=== PATIENT | female | born 1985 | race Caucasian/White ===

== ENCOUNTER → 2016-05-30 | Outpatient (CLI) | payer BC ==
[~2016-05-30] MED LIST: LRT5 PO
[2016-05-30 16:23] LABS: THYROID STIMULATING HORMONE 0.22 uIu/ml (0.300-4.500)
== END | disposition home or self-care (01) ==
LOC: C.LAB1850 14:53
PROVIDERS: ATTEND Internal Medicine Endocrinology, Diabetes & Metabolism
DX: E55.9 Vitamin D deficiency, unspecified (principal)

== ENCOUNTER → 2016-10-13 | Outpatient (CLI) | payer BC ==
[2016-10-13 17:10] LABS: THYROID STIMULATING HORMONE 4.48 uIu/ml (0.300-4.500)
== END | disposition home or self-care (01) ==
LOC: C.LAB1850 15:15
PROVIDERS: ATTEND Physician Assistant
DX: E03.9 Hypothyroidism, unspecified (principal)

== ENCOUNTER → 2017-07-24 | Outpatient (CLI) | payer BC | END | disposition home or self-care (01) | LOC: C.PAPS 15:24 | PROVIDERS: ATTEND Obstetrics & Gynecology | DX: O99.281 Endocrine, nutritional and metabolic diseases complicating pregnancy, first trimester (principal) ==

== ENCOUNTER → 2017-07-24 | Outpatient (CLI) | payer BC ==
[2017-07-24 11:16] LABS: BASO % 0.2 %; BASO ABS # 0.02 K/uL (0-0.2); EOS % 0.9 %; EOS ABS # 0.09 K/uL (0-0.5); HEMATOCRIT 41.9 % (37-47); HEMOGLOBIN 14.3 g/dL (12.0-16.0); IG# 0.03 K/uL (0.00-0.02); LYMPH % 20.1 %; LYMPH ABS # 2.12 K/uL (1.2-3.4); MEAN CORPUSCULAR HGB CONC 34.1 g/dl (32-36); MEAN PLATELET VOLUME 10.8 fL (7.4-10.4); MONO % 4.6 %; MONO ABS # 0.48 K/uL (0.11-0.59); NEUT % 73.9 %; NEUT ABS # 7.79 K/uL (1.4-6.5); PLATELET COUNT 248 K/uL (130-400); RED CELL DISTRIBUTION WIDTH CV 13.6 % (11.5-14.5); WHITE BLOOD COUNT 10.53 K/uL (4.8-10.8)
== END | disposition home or self-care (01) ==
LOC: C.LAB1850 09:58
PROVIDERS: ATTEND Obstetrics & Gynecology
DX: O99.281 Endocrine, nutritional and metabolic diseases complicating pregnancy, first trimester (principal); E03.9 Hypothyroidism, unspecified

== ENCOUNTER → 2017-12-06 | Outpatient (CLI) | payer BC, OTHER | END | disposition home or self-care (01) | LOC: C.LAB1850 10:32 | PROVIDERS: ATTEND Internal Medicine | DX: E03.8 Other specified hypothyroidism (principal); E06.3 Autoimmune thyroiditis ==

== ENCOUNTER → 2017-12-19 | Outpatient (CLI) | payer OTHER ==
[2017-12-19 12:14] LABS: HEMATOCRIT 38.2 % (37-47); HEMOGLOBIN 12.8 g/dL (12.0-16.0)
== END | disposition home or self-care (01) ==
LOC: C.LAB1850 09:29
PROVIDERS: ATTEND Obstetrics & Gynecology
DX: Z34.03 Encounter for supervision of normal first pregnancy, third trimester (principal); Z3A.00 Weeks of gestation of pregnancy not specified

== ENCOUNTER → 2017-12-27 | Outpatient (CLI) | payer OTHER | END | disposition home or self-care (01) | LOC: C.LAB1850 07:17 | PROVIDERS: ATTEND Obstetrics & Gynecology | DX: O28.1 Abnormal biochemical finding on antenatal screening of mother (principal) ==

== ENCOUNTER 2021-01-25 07:30 | Inpatient (IN) ==
[2021-01-25] MEDS ORDERED: OXYTOCIN 30 UNITS/500 ML BAG IV PRN ×3 (08:14→18:12)
[2021-01-25 08:59] LABS: Hematocrit (blood only) 38.8 % (37-47); Hemoglobin 12.8 g/dL (12.0-16.0); Mean Corpuscular Hemoglobin 28.3 pg (25-34); Mean Corpuscular Volume 85.8 fL (80-100); Platelet Count 238 K/uL (130-400); RDW Standard Deviation 40.5 fL (36.4-46.3); Red Blood Count 4.52 M/uL (4.2-5.4); White Blood Count 14.39 K/uL (4.8-10.8)
[2021-01-25] MEDS: LACTATED RINGER'S 1,000 ML IV PRN ×2 (09:41→13:06)
--- NOTE | 2021-01-25 10:29 | History & Physical Report ---
Date of Service January 25, 2021 Assessment & Plan (1) Encounter for supervision of normal in multigravida, antepartum: Plan: IUP at 40 1/7 weeks for post term induction cervix favorable so will start pitocin augmentation epidural when requested anticipate vaginal Admission and Anticipated Discharge Date Admission Date: January 25, 2021 History of Present Illness Primary Care Provider: Edie Rinaldi MD Patient is a 35 yo white female EDC 01/24/21 who presents for IOL because of post term . was complicated by GDM diet controlled and hypothyroidism. GBS negative. Allergies Allergy/AdvReac Type Severity Reaction Status Date / Time No Known Drug Allergies Allergy Verified 01/24/21 14:06 Home Medications Medication Instructions Recorded Confirmed Type prenat.vits,hari,kre-vywt-ljyct 1 tab PO DAILY 09/12/19 01/24/21 History Euthyrox 137 mcg tablet 137 mcg PO DAILY #1 tab NS 07/26/20 01/24/21 Rx (levothyroxine) ondansetron HCl 4 mg tablet 4 mg PO Q6H PRN #20 tab 10/18/20 01/24/21 Rx (Zofran) acetone (urine) test (Ketone Urine #50 ea 11/19/20 01/24/21 Rx Test) blood sugar diagnostic (OneTouch #150 ea 11/19/20 01/24/21 Rx Verio test strips) blood-glucose meter (OneTouch #1 ea 11/19/20 01/24/21 Rx Verio Flex meter) lancets 33 gauge (OneTouch Delica #150 ea 11/19/20 01/24/21 Rx Plus Lancet) Patient History Medical History (Updated 11/16/20 @ 14:51 by Yelena Young) Dyschromia History of chicken pox Lymphadenopathy, anterior cervical Missed Shingles Surgical History Hx of tonsillectomy S/P wisdom tooth extraction Family History Grandmother Breast cancer Aunt Breast cancer Mother Depression Grandfather Myocardial infarction Father Hypercholesteremia Denies family history of Ovarian cancer Prostate cancer Colorectal cancer Social History (Updated 06/10/20 @ 10:12 by Yelena Young) Smoking Status: Never smoker Hx Alcohol Use: No Hx Substance Use: No Preferred Language: Spanish Communication Ability: Effective Director Of Extension Work Required: No Beliefs That Will Affect Care: None marital status: marital status details: Nahun Bhakta (34) [phone] Current Living Situation: Spouse and Family Current Living Situation Comment: and daughter current occupational status: employed current occupation: [employer] rep Feels Safe at Home: Yes Safety Concerns: Feels Safe At This Time Assistive Devices: None Review of Systems All systems reviewed & are unremarkable except as noted in HPI & below Physical Exam Constitutional: WD/WN, vitals as above Respiratory: normal respiratory effort, lungs clear to auscultation Cardiovascular: RRR, no murmur, no edema Psychiatric: A+Ox3, euthymic affect Genitourinary: OB Exam Abdomen: + vertex, + estimated weight (7-8 pounds) and + irregular contractions Manual OB Exam: + cervical dilation 4 cm, + cervical effacement 80% and + station high OB Exam Monitor Tracing: + external FHT monitor used, + external uterine monitor used, + category I and + normal FHT variability Results & Data ([facility] [place]) Vital Signs (Past 12 Hours) Vital Signs Temp Pulse Resp BP 01/25/21 09:44 75 115/68 01/25/21 07:45 98.6 F 20 Code Status & VTE Plan VTE Prophylaxis Plan VTE Prophylaxis will be ordered: Yes Coding Level of Care Code None Diagnoses Encounter for supervision of normal in multigravida, antepartum Z34.80
[2021-01-25] MEDS ORDERED: ePHEDrine sulfate 50 MG/ML AMP ONE (12:38)
[2021-01-25] MEDS ORDERED: SODIUM CHLORIDE 0.9% INJ 10 ML VIAL ONE (12:38)
[2021-01-25] MEDS ORDERED: fentaNYL citrate 100 MCG/2 ML VIAL ONE (12:38)
[2021-01-25] MEDS ORDERED: BUPIVACAINE 0.25% 30 ML VIAL ONE (12:38)
[2021-01-25] MEDS ORDERED: fentaNYL 2MCG/ML ROPIVACAINE 1.25MG/ML 100 ML BAG EPI ONE (12:39)
--- NOTE | 2021-01-25 13:07 | Anesthesiology Consultation ---
Date of Service January 25, 2021 Assessment & Plan (1) Encounter for pre-operative examination: Chart Review Chart Review: Acceptable Risk for Surgery and Patient NOT seen in Pre Admission Testing Consults Requested none ASA ASA2 Proposed Anesthesia Anesthesia Type: Labor Epidural Risk / Benefits Reviewed With: PT / POA / Parent / Guardian, Accepts Plan and Informed Consent Obtained History Height/Weight Height: 5 ft 3 in Weight: 99.79 kg Allergies Allergy/AdvReac Type Severity Reaction Status Date / Time No Known Drug Allergies Allergy Verified 01/24/21 14:06 Medications Home Medications Medication Instructions Recorded Confirmed Last Taken prenat.vits,hari,suk-ienu-nqrwd 1 tab PO DAILY 09/12/19 01/24/21 Unknown Euthyrox 137 mcg tablet 137 mcg PO DAILY #1 tab NS 07/26/20 01/24/21 Unknown (levothyroxine) ondansetron HCl 4 mg tablet 4 mg PO Q6H PRN #20 tab 10/18/20 01/24/21 Unknown (Zofran) acetone (urine) test (Ketone Urine #50 ea 11/19/20 01/24/21 Unknown Test) blood sugar diagnostic (OneTouch #150 ea 11/19/20 01/24/21 Unknown Verio test strips) blood-glucose meter (OneTouch #1 ea 11/19/20 01/24/21 Unknown Verio Flex meter) lancets 33 gauge (OneTouch Delica #150 ea 11/19/20 01/24/21 Unknown Plus Lancet) Active Medications Generic Name Dose Route Start Last Admin Trade Name Freq PRN Reason Stop Dose Admin Oxytocin 30 units in 500 mls @ 7 mls/hr 01/25/21 08:14 01/25/21 11:45 Pitocin IV 01/27/21 08:13 0.42 units/hr .Q24H PRN 7 mls/hr Labor Induction/Augmentation Titration Protocol 0.42 UNITS/HR Lactated Ringer's 1,000 mls @ 125 mls/hr 01/25/21 08:14 01/25/21 13:11 Lr IV 01/27/21 08:13 125 mls/hr .Q8H PRN Infusion L&D Protocol Protocol NPO Date Last Intake of Fluids: 01/25/21 Time Last Intake of Fluids: 13:04 Date Last Intake of Solids: 01/25/21 Time Last Intake of Solids: 07:00 Past Medical History Medical History Dyschromia History of chicken pox Lymphadenopathy, anterior cervical Missed Shingles Exercise / Class Metabolic Activity II 4-5 Yardwork/Stairs/Walk up hill Past Family History Family History Grandmother Breast cancer Aunt Breast cancer Mother Depression Grandfather Myocardial infarction Father Hypercholesteremia Denies family history of Ovarian cancer Prostate cancer Colorectal cancer Past Surgical History Surgical History Hx of tonsillectomy S/P wisdom tooth extraction Past Anesthesia History No Hx of Anesthesia Complications History of PONV No Hx of PONV Social History Smoking Status: Never smoker Hx Alcohol Use: No Hx Substance Use: No Review of Systems Negative for chest pain or shortness of breath. Patient denies history of abnormal bleeding or bleeding disorder. Patient denies active use of anticoagulants other than low dose aspirin. Patient denies numbness, tingling or weakness in lower extremities. Physical Exam Vital Signs Last Vital Signs Temp 37.0 C 01/25/21 07:45 Pulse 76 01/25/21 12:55 Resp 20 01/25/21 07:45 BP 124/78 01/25/21 12:55 Constitutional not obese (gravid ) ENMT Mouth: no TMJ abnormality and oral opening not small Thyromental Distance: > or= 3.5 Finger Breadths Mallampati Class: II Neck normal visual inspection; neck extension not limited Respiratory normal respiratory effort Cardiovascular Rate/Rhythm: regular rate and regular rhythm Neurologic moves all extremities Psychiatric Orientation: alert and oriented x 3 Testing Laboratory Results 01/25/21 08:34
[2021-01-25] MEDS ORDERED: NALOXONE HCL 1 MG in SODIUM CHLORIDE 0.9% 1000ML 1,000 ML IV PRN (13:55)
[2021-01-25] MEDS ORDERED: diphenhydrAMINE 50 MG/ML VIAL IV PRN (13:55)
[2021-01-25] MEDS ORDERED: NALOXONE HCL 0.4 MG/1 ML VIAL/CARP IV PRN (13:55)
[2021-01-25] MEDS ORDERED: NALBUPHINE HCL INJ 10 MG/ML AMP IV PRN (13:55)
[2021-01-25] MEDS ORDERED: ONDANSETRON INJ 2 MG/ML 2 ML VIAL IV PRN (13:55)
[2021-01-25] MEDS ORDERED: ePHEDrine sulfate 50 MG/ML AMP IV PRN (13:55)
[2021-01-25] MEDS ORDERED: fentaNYL 2MCG/ML ROPIVACAINE 1.25MG/ML 100 ML BAG EPI PRN (13:55)
[2021-01-25] MEDS ORDERED: oxyCODONE/ACETAMINOPHEN 5mg/325mg TAB PO PRN (18:12)
[2021-01-25] MEDS ORDERED: SUPERCREAM 0.870% 15 GM JAR EXT PRN (18:12)
[2021-01-25] MEDS ORDERED: HYDROCORTISONE ACETATE 25 MG SUPP PR PRN (18:12)
[2021-01-25] MEDS ORDERED: BENZOCAINE 20% AER SPR 82.5 GM CAN EXT PRN (18:12)
[2021-01-25] MEDS ORDERED: ACETAMINOPHEN 325 MG TAB PO PRN (18:12)
[2021-01-25] MEDS ORDERED: bisacodyL 10 MG SUPP PR PRN (18:12)
[2021-01-25] MEDS ORDERED: DIPHTHERIA/TETANUS/PERTUSSIS 0.5 ML SYR/VIAL IM ONE (18:12)
--- NOTE | 2021-01-25 18:22 | Anesthesia Procedure Note ---
Date of Service January 25, 2021 Anesthesia Post Epidural Note Vital Signs Vital Signs: Temp Pulse Resp BP Pulse Ox 36.9 C 93 H 20 122/79 90 01/25/21 17:00 01/25/21 18:15 01/25/21 17:20 01/25/21 18:15 01/25/21 17:28 Notes Mental Status: alert / awake / arousable and participated in evaluation Nausea / Vomiting: adequately controlled Pain: adequately controlled Airway Patency, RR, SpO2: stable & adequate BP & HR: stable & adequate Hydration State: stable & adequate Neuraxial Anesthesia: was administered and sensory block is resolving Anesthetic Complications: no major complications apparent and Pt Satisfied with anesthetic care Epidural: Removed without complications and With tip intact Notes: Epidural site clean, dry and intact. No signs of edema, erythema or bruising at insertion site. Pt instructed to request anesthesia if she has residual lower extremity numbness or if she develops lower extremity pain or weakness, back pain or headache.
[2021-01-25] MEDS: DOCUSATE SODIUM 100 MG CAP PO SCH (20:31)
[2021-01-25] MEDS: IBUPROFEN 600 MG TAB PO PRN (20:31)
--- NOTE | 2021-01-25 23:09 | Delivery Summary ---
Vaginal Delivery Summary Date of Service January 25, 2021 Vaginal Delivery Summary and 1st Degree LAC Patient is a 35-year-old 4 para 1-0-2-1 white female who presented for induction of labor for postterm . Pitocin augmentation was begun and she received effective epidural analgesia when requested. Membranes were ruptured for clear fluid and she progressed to full dilation at which point she felt the urge to push. She pushed through 2 contractions for delivery of the vertex over intact perineum. The rest of the delivered easily and was placed on the mother's abdomen for further attention and drying. The was vigorous and moving all 4 limbs. After 1 minute the cord was clamped and cut. After cord blood was obtained the placenta was expressed intact with a three- vessel cord. A first-degree left labial laceration and first-degree perineal laceration were repaired with 3-0 chromic in the usual fashion. Estimated blood loss was 200 cc. bleeding was controlled with dilute Pitocin and fundal massage. Mother and were doing well after delivery. [facility] [place] Vaginal Delivery Charge Delivery Type Details: and 1st Degree LAC
[2021-01-26] MEDS: IBUPROFEN 600 MG TAB PO PRN ×4 (06:05→20:44)
[2021-01-26 06:40] LABS: Hematocrit (blood only) 35.5 % (37-47); Hemoglobin 11.8 g/dL (12.0-16.0); Mean Corpuscular Hemoglobin 28.6 pg (25-34); Mean Corpuscular Hgb Conc 33.2 g/dL (32-36); Mean Corpuscular Volume 86.2 fL (80-100); Mean Platelet Volume 10.9 fL (7.4-10.4); Platelet Count 217 K/uL (130-400); RDW Standard Deviation 41.1 fL (36.4-46.3); Red Blood Count 4.12 M/uL (4.2-5.4); White Blood Count 15.46 K/uL (4.8-10.8)
--- NOTE | 2021-01-26 07:14 | Obstetrical Progress Note ---
Date of Service January 26, 2021 Assessment & Plan (1) Encounter for care and examination after delivery: Plan: 35yo PPD 1 from at 40 weeks -Continue routine care -Vitals reviewed- HDS, afebrile -Encourage ambulation, regular diet -Pain control with ibuprofen, acetaminophen PRN -Encourage -Hgb 12.8 -O2 Sat 90 on room air, monitor -WBC 15.4 this morning, monitor Admission and Anticipated Discharge Date Admission Date: January 25, 2021 Supervising Physician Co-Signing Physician Notes Resident Physician Supervision Note: I interviewed and examined the patient. Discussed with and agree with findings and plan as documented in the note. Any exceptions or clarifications are listed here: [None] Documented By: Flaquita Collazo MD, FACOG Subjective PPD 1 s/p . Patient seen and examined at bedside. Reports no acute overnight events. Ambulating and voiding. Has not yet passed gas or stool. Regular diet w/o N/V. Breast Feeding. Pain /10, mainly breast tenderness. Review of Systems Review of Systems: Denies fevers/chills. Denies dyspnea, cough. Denies chest pain. Denies dysuria. Denies headache. Denies back pain. Physical Exam Physical Exam: General: Alert, oriented, no acute distress Cardiac: Regular rate and rhythm, normal S1, S2. No murmurs appreciated. Respiratory: Clear to auscultation b/l with good air flow entry, symmetric chest rise and fall. No wheezes or crackles. No increased work of breathing or accessory muscle use Abdomen: Soft, nontender, nondistended. Fundus firm and palpable at umbilicus. No guarding or rebound. Skin: No rashes or lesions Extremities: Warm, dry, well-perfused with capillary refill <2s b/l. No lower extremity edema, erythema or swelling. Negative Ernie's sign b/l. Results & Data ([facility]) Vital Signs (Past 12 Hours) Vital Signs Temp Pulse Pulse Resp BP BP 01/26/21 03:00 36.6 C 76 18 131/81 01/25/21 23:58 36.4 C L 88 18 132/82 01/25/21 20:15 36.9 C 84 18 126/72 01/25/21 20:00 85 18 130/80 01/25/21 19:44 80 144/76 H 01/25/21 19:30 36.7 C 80 18 144/76 H 01/25/21 19:15 94 H 139/69 01/25/21 19:00 100 H 20 122/59 L 01/25/21 18:45 20 01/25/21 18:44 90 133/66 Resident Activity Tracking Resident Involvement: Resident Care Provided Care Provided: Adult [facility] Medicine
[2021-01-26] MEDS: PRENATAL VITAMIN 1 TAB PO SCH (08:14)
[2021-01-26] MEDS: DOCUSATE SODIUM 100 MG CAP PO SCH ×2 (08:14→20:44)
[2021-01-26] MEDS: LEVOTHYROXINE SODIUM 137 MCG TABLET PO SCH (08:14)
[2021-01-26] MEDS ORDERED: bisacodyL 5 MG TABEC PO SCH (20:00)
[2021-01-27] MEDS: IBUPROFEN 600 MG TAB PO PRN ×2 (03:18→09:19)
[2021-01-27 06:44] LABS: Hematocrit (blood only) 35.4 % (37-47); Hemoglobin 11.6 g/dL (12.0-16.0)
[2021-01-27] MEDS: LEVOTHYROXINE SODIUM 137 MCG TABLET PO SCH (07:29)
--- NOTE | 2021-01-27 07:40 | Obstetrical Progress Note ---
Date of Service January 27, 2021 Assessment & Plan (1) Encounter for care and examination after delivery: Plan: 35yo PPD 2 from at 40 weeks -Continue routine care -Vitals reviewed- HDS, afebrile -Encourage ambulation, regular diet -Pain control with ibuprofen, acetaminophen PRN -Encourage -Hgb 11.6 -Discharge this morning Admission and Anticipated Discharge Date Admission Date: January 25, 2021 Supervising Physician Co-Signing Physician Notes Resident Physician Supervision Note: I was present with Dr. Rahman during the history and exam. I discussed the case with the resident and agree with the findings and plan as documented in the note. Any exceptions or clarifications are listed here: PPD#2 doing well, no concerns. Reviewed DC instructions, followup in office 6w. Documented By: Latoya Mohan, Subjective PPD 2 s/p . Patient seen and examined at bedside. Reports no acute overnight events. Ambulating and voiding. Has passed gas but not stool. Regular diet w/o N/V. Breast Feeding. Minimal breast tenderness, improved from yesterday. Review of Systems Review of Systems: Denies fevers/chills. Denies dyspnea, cough. Denies chest pain. Denies dysuria. Denies headache. Denies back pain. Physical Exam Physical Exam: General: Alert, oriented, no acute distress Cardiac: Regular rate and rhythm, normal S1, S2. No murmurs appreciated. Respiratory: Clear to auscultation b/l with good air flow entry, symmetric chest rise and fall. No wheezes or crackles. No increased work of breathing or accessory muscle use Abdomen: Soft, nontender, nondistended. Fundus firm and palpable 1cm below umbilicus. No guarding or rebound. Skin: No rashes or lesions Extremities: Warm, dry, well-perfused with capillary refill <2s b/l. No lower extremity edema, erythema or swelling. Negative Ernie's sign b/l. Results & Data ([facility]) Vital Signs (Past 12 Hours) Vital Signs Temp Pulse Resp BP Pulse Ox 01/26/21 23:10 36.7 C 64 16 131/88 98 01/26/21 20:40 36.6 C 80 16 129/84 98 Resident Activity Tracking Resident Involvement: Resident Care Provided Care Provided: OB Delivery
[2021-01-27] MEDS: PRENATAL VITAMIN 1 TAB PO SCH (09:19)
[2021-01-27] MEDS: DOCUSATE SODIUM 100 MG CAP PO SCH (09:19)
== END 2021-01-27 11:25 | disposition home or self-care (01) | DRG 807 ==
LOC: 4S1 07:30 → 4S2 20:32

== ENCOUNTER 2023-03-01 16:03 | Inpatient (IN) ==
[2023-03-01] MEDS ORDERED: LABETALOL HCL IV 5 MG/ML 20ML IV STA (16:28)
--- NOTE | 2023-03-01 17:10 | Emergency Department Note ---
Impression & Plan Pre-eclampsia ED Provider Note NAME: RAFA PRADHAN AGE: 37 SEX: F : 1985 ARRIVES VIA: Walk-In INFORMANT: Patient, ED PROVIDER(S): Johanna Adair MD CHIEF COMPLAINT: Preeclampsia HPI: This is a 37-year-old female presenting for hypertension/preeclampsia. Patient states that she gave to twins about 8 days ago. She had preeclampsia at the hospital where she delivered and was kept for observation. Her blood pressure goals are below 160s/110s. This afternoon she has noticed blood pressure in the 170s associate with headache. She said the headache feels like a slight pressure sensation bandlike. She has grogginess but otherwise no other symptoms. She has had daily headaches since being discharged giving . She thinks it was due to her epidural as it took multiple tries to get it. she states the headache has been worse with position. At this time her blood pressure is 150 systolic. She has had no vision changes, nausea, vomiting, focal neurologic weakness, numbness, paresthesias or seizures at home. She does take labetalol at home. ROS: See above HPI for pertinent positives & negatives. A total of 10 systems reviewed and were otherwise negative. PAST MEDICAL HISTORY: See Below PAST SURGICAL HISTORY: See Below FAMILY HISTORY: See Below SOCIAL HISTORY: See Below HOME MEDICATIONS: See Below ALLERGIES: See Below VITALS: See Below PHYSICAL EXAMINATION: General: resting comfortably in no acute distress Head: Normocephalic and atraumatic Eyes: Normal inspection, extraocular muscles intact, no conjunctival pallor Ear, nose, throat: Normal external exam Neck: Normal range of motion Respiratory: Patient is in no respiratory distress, lungs clear to auscultation bilaterally Cardiovascular: RRR without murmur appreciated GI: soft, nontender, no guarding or rebound Extremities: pulses intact with good cap refills, no LE pitting edema or calf tenderness Neuro: The patient awake and alert, appropriately conversive, no focal deficits, cranial nerves II through XII grossly intact Skin: Warm, dry, and intact MEDICAL DECISION MAKING: This is a 37-year-old female presenting for preeclampsia. Patient is 8 days . Diagnosed with preeclampsia At outside hospital, currently. 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 She was given IV labetalol 10 mg with improving her blood pressure into the 140s systolic. She had a headache without other neurologic symptoms, she has had persistent daily headaches even without high blood pressures at home. Patient blood pressure check does continue be elevated 160/102. Discussed with LINO Wall for next steps. She recommends magnesium loading and admission. She will come down to the ER for discussion for admission with patient Patient agreeable to admission at this time Triage Nursing notes reviewed. Prior medical records reviewed Vital Signs: reviewed and remarkable for hypertension Differential diagnosis: Preeclampsia ER treatment provided: See below Diagnostics interpreted by me: ECG: None Cardiac Monitoring: An order was placed for continuous cardiac monitoring. The monitor shows a rate of 70 with sinus rhythm. Laboratory studies: As stated above and show below. Consultation(s): LINO Wall Past Med/Surg History Medical History Dyschromia History of chicken pox Lymphadenopathy, anterior cervical Missed Shingles Surgical History Hx of tonsillectomy S/P wisdom tooth extraction Family History Grandmother Breast cancer Aunt Breast cancer Mother Depression Grandfather Myocardial infarction Father Hypercholesteremia Denies family history of Ovarian cancer Prostate cancer Colorectal cancer Social History Smoking Status: Never smoker Do You Dip or Chew Tobacco: No; Hx Alcohol Use: No Hx Substance Use: No Preferred Language: Russian Communication Ability: Effective Soldering Machine Tender Required: No Beliefs That Will Affect Care: None marital status: marital status details: Nahun Pradhan (34) [phone] Current Living Situation: Spouse and Family Current Living Situation Comment: , son and daughter, no pets current occupational status: employed current occupation: [employer] Feels Safe at Home: Yes Assistive Devices: None Allergies Allergies Allergy/AdvReac Type Severity Reaction Status Date / Time No Known Drug Allergies Allergy Verified 08/31/22 09:39 Home Meds Home Medications Medication Instructions Recorded Confirmed prenat.vits,hari,zyh-urxr-qdhwv 1 tab PO DAILY 09/12/19 08/31/22 Previous Rx's Medication Instructions Recorded ondansetron HCl 4 mg tablet 4 mg PO TID PRN nausea and 08/14/22 vomiting 5 days #30 tabs acetone (urine) test (Ketone Urine #50 ea 08/28/22 Test strips) blood sugar diagnostic (OneTouch #150 ea 08/28/22 Verio test strips) lancets 33 gauge (OneTouch Delica #150 ea 08/28/22 Lancets) levothyroxine 175 mcg tablet 175 mcg PO DAILY #90 tabs 12/22/22 Results & Data (ED) Vital Signs Vital Signs - 24 hr 03/01/23 16:12 03/01/23 16:39 03/01/23 16:40 Temperature 36.7 C Temperature Source Temporal Artery Scan Pulse Rate 77 78 80 Pulse Rate from SpO2 Sensor 82 Respiratory Rate 18 14 Respiratory Effort / Characteristics Non-Labored Respiratory Depth Normal Blood Pressure 146/99 H 161/122 H Blood Pressure Mean 114 135 Blood Pressure Position Sitting Pulse Oximetry 98 98 Oxygen Delivery Method Room Air Sepsis Recent Fever Within 48 Hours No Sepsis New/Unexplained Change in Mental Status No Sepsis Action Taken by Nursing No Action Required 03/01/23 16:45 03/01/23 16:47 03/01/23 16:57 Temperature Temperature Source Pulse Rate 84 67 72 Pulse Rate from SpO2 Sensor Respiratory Rate 18 12 12 Respiratory Effort / Characteristics Respiratory Depth Blood Pressure 150/90 H 158/96 H Blood Pressure Mean 110 116 Blood Pressure Position Pulse Oximetry Oxygen Delivery Method Sepsis Recent Fever Within 48 Hours Sepsis New/Unexplained Change in Mental Status Sepsis Action Taken by Nursing 03/01/23 17:00 03/01/23 17:15 Temperature Temperature Source Pulse Rate 67 70 Pulse Rate from SpO2 Sensor Respiratory Rate 12 17 Respiratory Effort / Characteristics Respiratory Depth Blood Pressure 160/102 H Blood Pressure Mean 121 Blood Pressure Position Pulse Oximetry Oxygen Delivery Method Sepsis Recent Fever Within 48 Hours Sepsis New/Unexplained Change in Mental Status Sepsis Action Taken by Nursing Laboratory Data 03/01/23 16:30 03/01/23 16:30 Lab Results 03/01/23 03/01/23 03/01/23 Range/Units 16:30 16:30 17:51 WBC 10.36 (4.8-10.8) K/ul RBC 4.71 (4.20-5.40) M/uL Hgb 12.2 (12.0-16.0) g/dl Hct 39.2 (37.0-47.0) % MCV 83.2 (80.0-100.0) fL MCH 25.9 (25.0-34.0) pg MCHC 31.1 L (32.0-36.0) g/dL RDW Std Deviation 40.8 (36.4-46.3) fL RDW Coeff of Jeff 13.6 (11.5-14.5) % Plt Count 438 H (130-400) K/uL MPV 10.7 (9.4-12.4) fL Immature Gran % (Auto) 0.2 % Neut % (Auto) 74.0 % Lymph % (Auto) 20.1 % Morrill % (Auto) 3.9 % Eos % (Auto) 1.2 % Baso % (Auto) 0.6 % Neut # (Auto) 7.68 H (1.40-6.50) K/uL Lymph # (Auto) 2.08 (1.20-3.40) K/uL Morrill # (Auto) 0.40 (0.11-0.59) K/uL Eos # (Auto) 0.12 (0.00-0.50) K/uL Baso # (Auto) 0.06 (0.00-0.20) K/uL Immature Gran # (Auto) 0.02 (0.01-0.20) K/uL Sodium TNP Potassium TNP Chloride 107 (98-107) mmol/L Carbon Dioxide 20 L (21-32) mmol/L Anion Gap TNP BUN 15 (6-23) mg/dl Creatinine 0.72 (0.6-1.2) mg/dl Est Cr Clr Drug Dosing Not Reportable Est GFR ( Amer) 125.8 ml/min Est GFR (Non-Af Amer) 108.5 ml/min BUN/Creatinine Ratio 20.8 H (10-20) Glucose 104 H (70-99(Fasting)) mg/dl Calcium 9.2 (8.6-10.3) mg/dl Total Bilirubin 0.4 (0.2-1.0) mg/dl Direct Bilirubin TNP AST TNP ALT 16 (7-52) U/L Alkaline Phosphatase 129 H (34-104) U/L Total Protein 7.6 (6.0-8.3) gm/dl Albumin 3.7 (3.4-5.0) gm/dl Urine Color Yellow Urine Appearance Clear (Clear) Urine pH 6.0 (4.5-7.5) Ur Specific Richardson 1.021 (1.000-1.030) Urine Protein Negative (Negative) Urine Glucose (UA) Negative (Negative) Urine Ketones Trace H (Negative) Urine Blood 2+ H (Negative) Urine Nitrite Negative (Negative) Urine Bilirubin Negative (Negative) Urine Urobilinogen Negative (Negative) Ur Leukocyte Esterase Trace H (Negative) Urine WBC (Auto) 1-5 (0-5) /hpf Urine RBC (Auto) 5-10 H (0-4) /hpf U Hyaline Cast (Auto) 1-5 (0-5) /lpf U Epithel Cells (Auto) 10-20 H (0-5) /lpf Urine Bacteria (Auto) Negative (Negative) Administered Medications Discontinued Medications Labetalol HCl (Labetalol Hcl Iv 5 Mg/Ml 20ml) 20 mg IV NOW STA Stop: 03/01/23 16:29 Last Admin: 03/01/23 16:41 Dose: 10 mg Documented By: EITAN Co-signed By: LAKEISHA Discharge Plan Visit Data Chief Complaint: Hypertension Stated Complaint: HYPERTENSION ED Provider: Johanna Adair Discharge Problem: Pre-eclampsia Forms Stand Alone Forms: My [facility] Prescriptions Prescriptions: No Action levothyroxine 175 mcg tablet 175 mcg PO DAILY Qty: 90 1RF (DME) Ketone Urine Test Strip See Rx Instructions .MEDSUPPLY Qty: 50 6RF Rx Instructions: As directed (DME) OneTouch Verio test strips Strip See Rx Instructions .MEDSUPPLY Qty: 150 6RF Rx Instructions: check blood sugars 4 times a day (DME) lancets [OneTouch Delica Lancets] 33 gauge misc See Rx Instructions .MEDSUPPLY Qty: 150 6RF Rx Instructions: As directed check blood sugars 4 times a day prenat.vits,hari,slk-hjuw-qafqa Tablet 1 tab PO DAILY ondansetron HCl 4 mg tablet 4 mg PO TID PRN (Reason: nausea and vomiting) 5 Days Qty: 30 3RF Referrals Referrals: Donavon Urena D.O. [Primary Care Provider] -
[2023-03-01 17:18] LABS: Basophils # (auto) 0.06 K/uL (0.00-0.20); Basophils % (auto) 0.6 %; Eosinophils # (auto) 0.12 K/uL (0.00-0.50); Eosinophils % (auto) 1.2 %; Hematocrit (blood only) 39.2 % (37.0-47.0); Hemoglobin 12.2 g/dl (12.0-16.0); Immature Granulocytes # (auto) 0.02 K/uL (0.01-0.20); Immature Granulocytes % (auto) 0.2 %; Lymphocytes # (auto) 2.08 K/uL (1.20-3.40); Lymphocytes % (auto) 20.1 %; Mean Corpuscular Hemoglobin 25.9 pg (25.0-34.0); Mean Corpuscular Hgb Conc 31.1 g/dL (32.0-36.0); Mean Corpuscular Volume 83.2 fL (80.0-100.0); Mean Platelet Volume 10.7 fL (9.4-12.4); Monocytes % (auto) 3.9 %; Neutrophils # (auto) 7.68 K/uL (1.40-6.50); Platelet Count 438 K/uL (130-400); RDW Coefficient of Variation 13.6 % (11.5-14.5); RDW Standard Deviation 40.8 fL (36.4-46.3); Red Blood Count 4.71 M/uL (4.20-5.40); White Blood Count 10.36 K/ul (4.8-10.8)
[2023-03-01 17:24] LABS: Alanine Aminotransferase 16 U/L (7-52); Albumin Level 3.7 gm/dl (3.4-5.0); Alkaline Phosphatase 129 U/L (34-104); BUN Creatinine Ratio 20.8 (10-20); Bilirubin,Total 0.4 mg/dl (0.2-1.0); Blood Urea Nitrogen 15 mg/dl (6-23); Calcium 9.2 mg/dl (8.6-10.3); Carbon Dioxide 20 mmol/L (21-32); Chloride 107 mmol/L (98-107); Est GFR (African American) 125.8 ml/min; Est GFR (Non-African American) 108.5 ml/min; Glucose 104 mg/dl (70-99(Fasting)); Total Protein 7.6 gm/dl (6.0-8.3)
[2023-03-01] MEDS ORDERED: MAG SULFATE 4GM BOLUS FROM BAG IV ONE (18:20)
[2023-03-01 18:23] LABS: Appearance Urine Clear (Clear); Bacteria Urine Automated Negative (Negative); Bilirubin Urine Negative (Negative); Blood Urine 2+ (Negative); Color Urine Yellow; Glucose Urine UA Negative (Negative); Ketones Urine Trace (Negative); Leukocyte Esterase Urine Trace (Negative); Nitrite Urine Negative (Negative); Protein Urine Negative (Negative); Specific Gravity Urine 1.021 (1.000-1.030); Urobilinogen Urine Negative (Negative)
[2023-03-01] MEDS ORDERED: LACTATED RINGER'S 1,000 ML IV SCH (18:30)
[2023-03-01] MEDS ORDERED: MAGNESIUM SULFATE / WTR 40 GM/1,000 ML BAG IV SCH (18:30)
--- NOTE | 2023-03-01 18:37 | History & Physical Report ---
Date of Service March 01, 2023 Assessment & Plan (1) Preeclampsia in period: Plan: Discussed that although exam and labs are reassuring, BP is above goal, and FOX recently may be from spinal fluid leak but cannot r/o that it relates to BP. Would recommend most cautious approach which is readmission for magnesium, typically 24hr but can stop at 12hr if BP normalizing and symptoms doing well. Would use this time to increase from home BP med doses and ensure her BP remains controlled to goal range on PO meds. Pt agreeable. Alternative of outpatient management with PO dose increases considered as a lesser option but declined by patient and FOB. History of Present Illness Primary Care Provider: Donavon Urena 37yo who is 8 days postop from vaginal delivery of [place] [facility], and who reports diagnosis of severe preeclampsia with administration of 24 hours of magnesium. No discharge summary or paperwork from [facility] available for review but patient is an excellent historian. She was discharged home on 60XL procardia BID and 200mg PO labetalol TID, and advised to check BP at home QID. Patient was also struggling with FOX ever since her epidural which required multiple attempts at placement and a wet tap. She was prescribed fioricet by the anesthesia service for a "mild spinal headache" during her admission at [facility]. She was also told by M after about 2 days of fioricet that she should actually stop that drug, due to the risk of rebound headaches. She was disappointed about that because it had been working well, but has tolerated the FOX, which only in the last day or two has finally begun to improve noticeably. She is overall feeling *better* in the last day than she has at any point since leave [facility], but noted that her BP at home today was 171/104 and 171/94 on repeat. Therefore she called [facility] and was told to present to [facility]. She has no FOX here in the ER, no vision changes, no RUQ pain, and no significant edema. BP ranges from mild HTN to severe HTN depending on whether she is resting or speaking/stressed during the auto-BP cuff activation. She notes that at home she is not sleeping well and can't really rest, so although she's taking meds as prescribed, she can't always take BP under ideal conditions, nor can she really avoid the types of situations that may cause spikes. She is agreeable to whatever treatment is recommended, including readmission if needed. Allergies Allergy/AdvReac Type Severity Reaction Status Date / Time No Known Drug Allergies Allergy Verified 08/31/22 09:39 Home Medications Medication Instructions Recorded Confirmed Type prenat.vits,hari,hud-abjs-kjpyi 1 tab PO DAILY 09/12/19 08/31/22 History ondansetron HCl 4 mg tablet 4 mg PO TID PRN nausea and 08/14/22 08/31/22 Rx vomiting 5 days #30 tabs acetone (urine) test (Ketone Urine #50 ea 08/28/22 08/31/22 Rx Test strips) blood sugar diagnostic (OneTouch #150 ea 08/28/22 08/31/22 Rx Verio test strips) lancets 33 gauge (OneTouch Delica #150 ea 08/28/22 08/31/22 Rx Lancets) levothyroxine 175 mcg tablet 175 mcg PO DAILY #90 tabs 12/22/22 Rx Past Med/Surg History Medical History Dyschromia History of chicken pox Lymphadenopathy, anterior cervical Missed Shingles Surgical History Hx of tonsillectomy S/P wisdom tooth extraction Family History Grandmother Breast cancer Aunt Breast cancer Mother Depression Grandfather Myocardial infarction Father Hypercholesteremia Denies family history of Ovarian cancer Prostate cancer Colorectal cancer Social History Smoking Status: Never smoker Do You Dip or Chew Tobacco: No; Hx Alcohol Use: No Hx Substance Use: No Preferred Language: Armenian Communication Ability: Effective Combination Worker Required: No Beliefs That Will Affect Care: None marital status: marital status details: Nahun Bhakta (34) [phone] Current Living Situation: Spouse and Family Current Living Situation Comment: , son and daughter, no pets current occupational status: employed current occupation: [employer] rep Feels Safe at Home: Yes Assistive Devices: None Physical Exam Constitutional: WD/WN, vitals as above Eyes: PERRL, conjunctivae normal, anicteric sclerae ENMT: external ear and nose normal, oropharynx normal Neck: supple Respiratory: normal respiratory effort and able to speak in complete sentences; no respiratory distress Cardiovascular: Rate/Rhythm: regular rate and regular rhythm Gastrointestinal (Abdomen): postgravid, soft, NT in RUQ Musculoskeletal: no cyanosis or clubbing, extremities motor strength 5/5 Skin: no rashes, warm and dry Neurologic: patellar DTR's 2+ bilat, sensation intact Psychiatric: A+Ox3, euthymic affect Lymphatic: no cervical or axillary lymphadenopathy Results & Data Results & Data Vital Signs (Past 12 Hours) Vital Signs Temp Pulse Resp BP Pulse Ox O2 Del Method 03/01/23 17:15 70 17 03/01/23 17:00 67 12 160/102 H 03/01/23 16:57 72 12 03/01/23 16:47 67 12 158/96 H 03/01/23 16:45 84 18 150/90 H 03/01/23 16:40 80 14 161/122 H 98 03/01/23 16:39 78 03/01/23 16:12 98.1 F 77 18 146/99 H 98 Room Air PG Care Time/CCT Total # of Minutes Spent Total Time Spent with Patient: Total time spent is greater than 50% in coordination of care (as documented) at patient's floor/unit and/or counseling patient: Coding Level of Care Code 03266 INT INP/OBS CARE 3/75MIN Diagnoses Preeclampsia in period O14.95
[2023-03-01 18:38] LABS: Potassium 4.1 mmol/L (3.5-5.1)
[2023-03-01] MEDS: NIFEdipine EXTENDED REL 30 MG TABCR PO SCH (21:41)
[2023-03-01] MEDS: LABETALOL HCL 300 MG TAB PO SCH (21:41)
--- NOTE | 2023-03-02 06:59 | Obstetrical Progress Note ---
Date of Service March 02, 2023 Assessment & Plan (1) Preeclampsia in period: Plan: preeclampsia with BP elevation yesterday. Readmitted for magnesium and antihypertensive med titration. So far BP has normalized. Will stop magnesium this morning and see how she does with just her home PO meds. Should be able to D/C home today with outpatient follow up if BP remains normal or at least mild HTN on the anticipated home regimen. D/W rose MD as well. Admission and Anticipated Discharge Date Admission Date: March 01, 2023 Subjective Patient has no c/o this morning, "I feel really good actually." Physical Exam Physical Exam: Resting supine, NAD, speaking energetically/fluidly and repositioning self in bed side to side then sitting up without difficulty. No resp distress Vitals reviewed, BP normal to at times low, pulse normal Results & Data Vital Signs (Past 12 Hours) Vital Signs Temp Pulse Pulse Resp BP BP Pulse Ox 03/02/23 06:00 18 03/02/23 06:00 18 03/02/23 05:00 18 03/02/23 05:00 18 03/02/23 03:00 98.2 F 16 03/02/23 03:00 16 03/02/23 06:52 76 94 03/02/23 06:47 78 94 03/02/23 06:42 78 95 03/02/23 06:41 79 94 03/02/23 06:36 80 94 03/02/23 06:30 79 94 03/02/23 06:14 77 94 03/02/23 06:12 79 95 03/02/23 06:00 85 108/67 03/02/23 05:42 85 98 03/02/23 05:12 87 107/70 98 03/02/23 05:00 78 106/68 03/02/23 04:33 66 96 03/02/23 04:32 83 94 03/02/23 04:14 67 94 03/02/23 04:03 67 96 03/02/23 04:00 18 03/02/23 04:00 68 18 111/69 03/02/23 03:52 69 94 03/02/23 03:43 66 94 03/02/23 03:34 72 94 03/02/23 03:33 73 95 03/02/23 03:23 69 94 03/02/23 03:13 68 94 03/02/23 03:06 70 94 03/02/23 03:03 69 95 03/02/23 03:00 71 118/68 94 03/02/23 02:55 72 92 03/02/23 02:35 67 94 03/02/23 02:33 68 94 03/02/23 02:30 70 94 03/02/23 02:25 70 94 03/02/23 02:17 72 93 03/02/23 02:07 71 94 03/02/23 02:03 69 94 03/02/23 02:00 73 108/67 03/02/23 01:58 70 94 03/02/23 01:53 71 94 03/02/23 01:46 69 94 03/02/23 01:35 70 93 03/02/23 01:33 70 94 03/02/23 01:25 70 94 03/02/23 01:03 76 97 03/02/23 01:00 74 128/72 03/02/23 00:49 81 94 03/02/23 00:43 68 94 03/02/23 00:37 66 94 03/02/23 00:33 69 95 03/02/23 00:17 72 94 03/02/23 00:12 73 94 03/02/23 00:03 66 96 03/02/23 00:00 73 106/55 L 03/01/23 23:59 68 94 03/01/23 23:53 65 94 03/01/23 23:45 66 94 03/01/23 23:40 67 94 03/01/23 23:33 66 96 03/01/23 23:31 66 94 03/01/23 23:24 66 94 03/01/23 23:19 64 94 03/01/23 23:14 67 94 03/01/23 23:01 62 98 03/01/23 23:00 63 118/71 03/01/23 22:28 70 116/67 03/01/23 21:22 18 03/01/23 21:22 98.4 F 70 18 134/80 99 03/01/23 21:15 03/02/23 02:00 18 03/02/23 01:00 18 03/02/23 00:00 18 03/01/23 23:00 98.6 F 18 03/01/23 23:00 18 03/01/23 22:28 18 03/01/23 22:28 18 03/01/23 20:07 74 21 119/82 03/01/23 20:00 72 20 129/83 03/01/23 19:45 73 14 129/77 03/01/23 19:30 78 16 134/85 03/01/23 19:17 126/81 03/01/23 19:17 80 14 03/01/23 19:15 81 17 138/84 03/01/23 19:00 75 16 136/98 03/01/23 18:58 77 19 136/88 O2 Del Method 03/02/23 06:00 03/02/23 06:00 03/02/23 05:00 03/02/23 05:00 03/02/23 03:00 03/02/23 03:00 03/02/23 06:52 03/02/23 06:47 03/02/23 06:42 03/02/23 06:41 03/02/23 06:36 03/02/23 06:30 03/02/23 06:14 03/02/23 06:12 03/02/23 06:00 03/02/23 05:42 03/02/23 05:12 03/02/23 05:00 03/02/23 04:33 03/02/23 04:32 03/02/23 04:14 03/02/23 04:03 03/02/23 04:00 03/02/23 04:00 03/02/23 03:52 03/02/23 03:43 03/02/23 03:34 03/02/23 03:33 03/02/23 03:23 03/02/23 03:13 03/02/23 03:06 03/02/23 03:03 03/02/23 03:00 03/02/23 02:55 03/02/23 02:35 03/02/23 02:33 03/02/23 02:30 03/02/23 02:25 03/02/23 02:17 03/02/23 02:07 03/02/23 02:03 03/02/23 02:00 03/02/23 01:58 03/02/23 01:53 03/02/23 01:46 03/02/23 01:35 03/02/23 01:33 03/02/23 01:25 03/02/23 01:03 03/02/23 01:00 03/02/23 00:49 03/02/23 00:43 03/02/23 00:37 03/02/23 00:33 03/02/23 00:17 03/02/23 00:12 03/02/23 00:03 03/02/23 00:00 03/01/23 23:59 03/01/23 23:53 03/01/23 23:45 03/01/23 23:40 03/01/23 23:33 03/01/23 23:31 03/01/23 23:24 03/01/23 23:19 03/01/23 23:14 03/01/23 23:01 03/01/23 23:00 03/01/23 22:28 03/01/23 21:22 03/01/23 21:22 Room Air 03/01/23 21:15 Room Air 03/02/23 02:00 03/02/23 01:00 03/02/23 00:00 03/01/23 23:00 03/01/23 23:00 03/01/23 22:28 03/01/23 22:28 03/01/23 20:07 03/01/23 20:00 03/01/23 19:45 03/01/23 19:30 03/01/23 19:17 03/01/23 19:17 03/01/23 19:15 03/01/23 19:00 03/01/23 18:58 PG Care Time/CCT Total # of Minutes Spent Total Time Spent with Patient: Total time spent is greater than 50% in coordination of care (as documented) at patient's floor/unit and/or counseling patient: Coding Level of Care Code None Diagnoses Preeclampsia in period O14.95
[2023-03-02] MEDS: NIFEdipine EXTENDED REL 30 MG TABCR PO SCH (08:47)
[2023-03-02] MEDS: LABETALOL HCL 300 MG TAB PO SCH ×2 (08:47→08:53)
[2023-03-02] MEDS ORDERED: NIFEdipine EXTENDED REL 30 MG TABCR PO ONE (08:53)
[2023-03-02] MEDS: LABETALOL HCL 200 MG TAB PO SCH ×2 (09:30→14:02)
--- NOTE | 2023-03-02 14:46 | Communication Note ---
Date of Service: March 02, 2023 pt sitting up nursing feels really great. no headache. bps have been normal. wants to go home. i have communicated with [employer] operation md and plan was to decrease dosing of her meds and make sure bp stayed stable and then send home. those parameters are met. will send home and have her f/u for bp check in office sunday, may need to decrease dosing of meds further. call with any concerning sx that were reviewed.
== END 2023-03-02 15:00 | disposition home or self-care (01) | DRG 776 ==
LOC: ED 16:03 → 4S1 18:22
DX: Z79.890 Hormone replacement therapy; O14.95 Unspecified pre-eclampsia, complicating the puerperium; Z79.899 Other long term (current) drug therapy